=== PATIENT | male | born 1960 | race Caucasian/White ===

== ENCOUNTER 2017-05-24 08:44 | Emergency (ER) | payer MEDICARE ==
[~2017-05-24] VITALS: Ht 180.3 cm; Wt 98.4 kg
[~2017-05-24 08:44] MED LIST: ALBU90OI6 INH; ALBU90OI61 INH; AMOCLA500 PO; AMOCLA875 PO; ASPI81EC PO; AZIT250 PO; Aldactone25 MG; DIAZ10 PO; FLUT110OIA IH; GUAPHELA PO; GUAPSEER PO; HYDACE10B PO; KETO10 PO; METF500 PO; METH10; METH10 PO; METH40; Monodox100 MG PO; OXYC15ER PO; OXYC5; OXYM.05NI; POTCHL20ER; POTCHL20ER PO; PRED10 PO; PRED20 PO; PROM25 PO; Prednisone20 MG PO; Roxicodone15 MG PO; SPIR25 PO; TRAZ50 PO; Zithromax250 MG PO
[2017-05-24] MEDS ORDERED: Flomax0.4 MG PO (09:41)
[2017-05-24 10:52] LABS: Prostate Specific Antigen 0.691 ng/mL (0.000-4.000)
[2017-05-24] MEDS ORDERED: LIDO700A20 TOP (11:02)
[2017-08-22] MEDS ORDERED: METH40 PO (12:16)
[2017-08-22] MEDS ORDERED: RANI150 PO (12:16)
[2017-08-22] MEDS ORDERED: K-Dur20 MEQ (12:16)
== END 2017-05-24 11:11 | disposition home or self-care (01) ==
LOC: ER 08:44
PROVIDERS: Emergency Medicine
DX: N40.1 Benign prostatic hyperplasia with lower urinary tract symptoms (principal); R39.11 Hesitancy of micturition; F11.20 Opioid dependence, uncomplicated; E11.42 Type 2 diabetes mellitus with diabetic polyneuropathy; R19.7 Diarrhea, unspecified; G89.29 Other chronic pain; Z87.891 Personal history of nicotine dependence; Z79.899 Other long term (current) drug therapy
CPT/HCPCS: 36415; 99283; G0103

== ENCOUNTER 2017-07-30 08:21 | Day surgery (SDC) | payer MEDICARE ==
[~2017-07-30] VITALS: Ht 180.3 cm; Wt 89.1 kg
[~2017-07-30 08:21] MED LIST changes: +Flomax0.4 MG PO; +LIDO700A20 TOP
[2017-07-30] MEDS ORDERED: METH10 (08:56)
[2017-08-22] MEDS ORDERED: K-Dur20 MEQ (12:16)
[2017-08-22] MEDS ORDERED: RANI150 PO (12:16)
[2017-08-22] MEDS ORDERED: METH40 PO (12:16)
== END 2017-07-30 11:07 | disposition home or self-care (01) ==
LOC: ORSCSDS 08:21
PROVIDERS: Internal Medicine Gastroenterology
PROC: 0DBN8ZX Excision of Sigmoid Colon, Via Natural or Artificial Opening Endoscopic, Diagnostic (ICD-10-PCS; principal; 2017-07-30 10:00)
PROC: 0DBB8ZX Excision of Ileum, Via Natural or Artificial Opening Endoscopic, Diagnostic (ICD-10-PCS; principal; 2017-07-30 10:00)
PROC: 0DBK8ZX Excision of Ascending Colon, Via Natural or Artificial Opening Endoscopic, Diagnostic (ICD-10-PCS; principal; 2017-07-30 10:00)
DX: R19.7 Diarrhea, unspecified (principal); R63.4 Abnormal weight loss; D12.3 Benign neoplasm of transverse colon; D12.2 Benign neoplasm of ascending colon; K63.5 Polyp of colon; Z86.010 Personal history of colon polyps; E78.5 Hyperlipidemia, unspecified; G62.9 Polyneuropathy, unspecified; J44.9 Chronic obstructive pulmonary disease, unspecified; Z79.899 Other long term (current) drug therapy; Z79.891 Long term (current) use of opiate analgesic; Z87.891 Personal history of nicotine dependence
CPT/HCPCS: 88305; J2405

== ENCOUNTER 2017-08-26 13:22 | Day surgery (SDC) | payer MEDICARE ==
[2017-08-24 09:06] LABS: Anion Gap 8 mmol/L (6-16); Blood Urea Nitrogen 20 mg/dL (8-24); Bun/Creatinine Ratio 21.2 (12.0-20.0); CO2, Blood 30 mmol/L (21-32); Chloride, Blood 97 mmol/L (98-108); Creatinine, Blood 0.94 mg/dL (0.60-1.20); Glomerular Filtration Rate >60 (60-); Glucose, Blood 139 mg/dL (70-99); Sodium, Blood 135 mmol/L (136-145)
[2017-08-24 09:09] LABS: BASOPHILS ABSOLUTE AUTO 0.08 K/mm3 (0.00-0.23); BASOPHILS PERCENT AUTO 1 % (0-2); EOSINOPHILS ABSOLUTE AUTO 0.14 K/mm3 (0.00-0.68); EOSINOPHILS PERCENT AUTO 1 % (0-6); Hematocrit 45.4 % (37.0-53.0); Hemoglobin 15.4 g/dL (13.5-17.5); IMMATURE GRAN ABSOLUTE AUTO 0.02 K/mm3 (0.00-0.10); IMMATURE GRAN PERCENT AUTO 0 % (0-1); LYMPHOCYTES ABSOLUTE AUTO 2.27 K/mm3 (0.84-5.20); LYMPHOCYTES PERCENT AUTO 21 % (21-46); MONOCYTES ABSOLUTE AUTO 0.62 K/mm3 (0.16-1.47); MONOCYTES PERCENT AUTO 6 % (4-13); Mean Corpuscular HGB 30.3 pg (26.0-34.0); Mean Corpuscular HGB Conc 33.9 g/dL (31.5-36.5); Mean Corpuscular Volume 89 fL (80-100); Mean Platelet Volume 10.6 fL (9.1-12.4); NEUTROPHILS ABSOLUTE AUTO 7.54 K/mm3 (1.96-9.15); NEUTROPHILS PERCENT AUTO 71 % (41-73); Platelet Count 268 K/mm3 (150-400); RDW Coefficient Variation 12.8 % (11.7-14.2); RDW Standard Deviation 42.2 fL (35.1-46.3); Red Blood Cell Count 5.08 M/mm3 (4.30-5.90); White Blood Cell Count 10.67 K/mm3 (4.00-11.30)
[~2017-08-26] VITALS: Ht 180.3 cm; Wt 88.2 kg
[~2017-08-26 13:22] MED LIST changes: +K-Dur20 MEQ; +METH40 PO; +RANI150 PO
== END 2017-08-26 17:15 | disposition home or self-care (01) ==
LOC: ORSCSDS 13:22
PROVIDERS: Podiatrist Foot & Ankle Surgery
PROC: 01NG0ZZ Release Tibial Nerve, Open Approach (ICD-10-PCS; principal; 2017-08-26 14:45)
DX: G57.51 Tarsal tunnel syndrome, right lower limb (principal); F41.9 Anxiety disorder, unspecified; Z79.891 Long term (current) use of opiate analgesic; Z79.899 Other long term (current) drug therapy; Z87.891 Personal history of nicotine dependence
CPT/HCPCS: 36415; 80048; 85025; J0171; J0690; J1100; J2250; J2405; J3010

== ENCOUNTER 2017-10-07 13:36 | Day surgery (SDC) | payer MEDICARE ==
[~2017-10-07] VITALS: Ht 180.3 cm; Wt 87.3 kg
== END 2017-10-07 17:53 | disposition home or self-care (01) ==
LOC: ORSCSDS 13:36
PROVIDERS: Podiatrist Foot & Ankle Surgery
PROC: 01NG0ZZ Release Tibial Nerve, Open Approach (ICD-10-PCS; principal; 2017-10-07 14:30)
DX: G57.51 Tarsal tunnel syndrome, right lower limb (principal); F41.9 Anxiety disorder, unspecified; Z87.891 Personal history of nicotine dependence; Z79.891 Long term (current) use of opiate analgesic; Z79.899 Other long term (current) drug therapy
CPT/HCPCS: J0171; J0690; J1100; J1885; J2250; J2405; J3010; J7120

== ENCOUNTER 2018-05-11 08:38 | Emergency (ER) | payer MEDICARE ==
[~2018-05-11] VITALS: Ht 177.8 cm; Wt 90.7 kg
[2018-05-11] MEDS ORDERED: OXYC10TA19 (09:29)
[2018-05-11] MEDS ORDERED: METH10 PO (09:29)
[2018-05-11] MEDS ORDERED: ALBU90OI INH (09:39)
[2018-05-11] MEDS ORDERED: TYLECOD3 PO (09:39)
[2018-05-11] MEDS ORDERED: ONDA4ODT MM (09:39)
== END 2018-05-11 09:48 | disposition home or self-care (01) ==
LOC: ER 08:38
DX: J11.1 Influenza due to unidentified influenza virus with other respiratory manifestations (principal); E11.40 Type 2 diabetes mellitus with diabetic neuropathy, unspecified; Z87.891 Personal history of nicotine dependence
CPT/HCPCS: 99283

== ENCOUNTER → 2019-01-06 | Outpatient (CLI) | payer MEDICARE ==
[~2019-01-06] MED LIST changes: +ALBU90OI INH; +ONDA4ODT MM; +OXYC10TA19; +TYLECOD3 PO
== END | disposition home or self-care (01) ==
LOC: LAB SHORT 14:46 → LAB 14:46
DX: R71.8 Other abnormality of red blood cells (principal)
CPT/HCPCS: 82668

== ENCOUNTER → 2019-01-22 | Outpatient (CLI) | payer MEDICARE ==
[2019-01-22 13:01] LABS: Alanine Aminotransfer (ALT/SGP 21 U/L (12-78); Albumin, Blood 3.8 g/dL (3.4-5.0); Albumin/Globulin Ratio 0.9 (0.8-1.8); Alk Phos 79 U/L (50-136); Amylase, Blood 301 U/L (25-115); Anion Gap 7 mmol/L (6-16); Aspartate Aminotrans (AST/SGOT 21 U/L (12-37); Bilirubin, Total 0.6 mg/dL (0.1-1.0); Blood Urea Nitrogen 26 mg/dL (8-24); Bun/Creatinine Ratio 28.1 (12.0-20.0); CO2, Blood 30 mmol/L (21-32); Calcium, Blood 9.7 mg/dL (8.5-10.1); Chloride, Blood 102 mmol/L (98-108); Creatinine, Blood 0.93 mg/dL (0.60-1.20); Globulin, Blood 4.1 g/dL (2.2-4.0); Glomerular Filtration Rate >60 (60-); Glucose, Blood 117 mg/dL (70-99); Potassium, Blood 3.4 mmol/L (3.5-5.5); Sodium, Blood 139 mmol/L (136-145); Total Protein, Blood 7.9 g/dL (6.4-8.2)
== END | disposition home or self-care (01) ==
LOC: LAB SHORT 10:26 → LAB 10:26
PROVIDERS: Internal Medicine Hematology & Oncology
DX: D75.1 Secondary polycythemia (principal); R71.8 Other abnormality of red blood cells; D72.829 Elevated white blood cell count, unspecified; E11.9 Type 2 diabetes mellitus without complications
CPT/HCPCS: 80053; 82150; 83036

== ENCOUNTER 2019-07-07 10:38 | Emergency (ER) | payer MEDICARE ==
[~2019-07-07] VITALS: Ht 180.3 cm; Wt 121.6 kg
[2019-07-07] MEDS ORDERED: Potassium Chlo20 ME1 PO (11:16)
[2019-07-07] MEDS ORDERED: OLMESARTAN MEDOX5 MG PO (11:17)
[2019-07-07] MEDS ORDERED: METFORMIN HCL500 M2 PO (11:17)
[2019-07-07] MEDS ORDERED: Depo-Testos200 MG/ML IM (11:18)
[2019-07-07] MEDS ORDERED: TAMSULOSIN HCL0.4 M1 PO (11:18)
[2019-07-07] MEDS ORDERED: Percocet 5-3251 EACH PO (12:47)
[2019-07-07] MEDS ORDERED: IBU800 MG PO (12:47)
== END 2019-07-07 12:58 | disposition home or self-care (01) ==
LOC: ER 10:38
DX: M54.32 Sciatica, left side (principal); Z79.899 Other long term (current) drug therapy; Z79.84 Long term (current) use of oral hypoglycemic drugs; E11.40 Type 2 diabetes mellitus with diabetic neuropathy, unspecified; Z87.891 Personal history of nicotine dependence
CPT/HCPCS: 96372; 99283-25; J1885

== ENCOUNTER 2019-07-16 11:08 | Emergency (ER) | payer MEDICARE ==
[~2019-07-16] VITALS: Ht 180.3 cm; Wt 95.7 kg
[~2019-07-16 11:08] MED LIST changes: +Depo-Testos200 MG/ML IM; +IBU800 MG PO; +METFORMIN HCL500 M2 PO; +OLMESARTAN MEDOX5 MG PO; +Percocet 5-3251 EACH PO; +Potassium Chlo20 ME1 PO; +TAMSULOSIN HCL0.4 M1 PO
[2019-07-16] MEDS ORDERED: PRED20 PO (13:47)
[2019-07-16] MEDS ORDERED: Hydrocodone-Ap1 EA23 PO (13:47)
[2019-07-16] MEDS ORDERED: Robaxin-750750 MG PO (13:47)
== END 2019-07-16 13:57 | disposition home or self-care (01) ==
LOC: ER 11:08
DX: M54.32 Sciatica, left side (principal); E11.40 Type 2 diabetes mellitus with diabetic neuropathy, unspecified; Z79.899 Other long term (current) drug therapy; Z79.84 Long term (current) use of oral hypoglycemic drugs; Z87.891 Personal history of nicotine dependence
CPT/HCPCS: 96372; 99283-25; A9270-GY; J1170

== ENCOUNTER 2020-06-22 10:11 | Emergency (ER) | payer MEDICARE ==
[~2020-06-22] VITALS: Ht 180.3 cm; Wt 90.7 kg
[~2020-06-22 10:11] MED LIST changes: +Hydrocodone-Ap1 EA23 PO; +Robaxin-750750 MG PO
[2020-06-22] MEDS ORDERED: HYDR1TAB94 PO (11:33)
== END 2020-06-22 12:06 | disposition home or self-care (01) ==
LOC: ER 10:11
DX: M70.31 Other bursitis of elbow, right elbow (principal); E11.40 Type 2 diabetes mellitus with diabetic neuropathy, unspecified; Z79.899 Other long term (current) drug therapy; Z79.52 Long term (current) use of systemic steroids
CPT/HCPCS: 73080; 99283-25

== ENCOUNTER 2020-11-21 13:31 | Emergency (ER) | payer MEDICARE ==
[~2020-11-21] VITALS: Ht 180.3 cm; Wt 92.5 kg
[~2020-11-21 13:31] MED LIST changes: +HYDR1TAB94 PO
[2020-11-21] MEDS ORDERED: SULTRIDS PO (14:16)
[2020-11-21] MEDS ORDERED: CEPH500 PO (14:16)
== END 2020-11-21 14:18 | disposition home or self-care (01) ==
LOC: ER 13:31
DX: L02.412 Cutaneous abscess of left axilla (principal); E11.40 Type 2 diabetes mellitus with diabetic neuropathy, unspecified; Z79.899 Other long term (current) drug therapy; Z87.891 Personal history of nicotine dependence
CPT/HCPCS: 99283

== ENCOUNTER → 2021-08-22 | Outpatient (CLI) | payer MEDICARE ==
[~2021-08-22] MED LIST changes: +ATEN25 PO; +CEPH500 PO; +METH5 PO; +POTA20PAC; +SULTRIDS PO; +SULTRISS PO
[2021-08-22 09:26] LABS: BASOPHILS ABSOLUTE AUTO 0.12 K/mm3 (0.00-0.23); BASOPHILS PERCENT AUTO 1 % (0-2); EOSINOPHILS ABSOLUTE AUTO 0.27 K/mm3 (0.00-0.68); EOSINOPHILS PERCENT AUTO 2 % (0-6); Hematocrit 48.3 % (37.0-53.0); Hemoglobin 16.2 g/dL (13.5-17.5); IMMATURE GRAN ABSOLUTE AUTO 0.04 K/mm3 (0.00-0.10); IMMATURE GRAN PERCENT AUTO 0 % (0-1); LYMPHOCYTES ABSOLUTE AUTO 1.67 K/mm3 (0.84-5.20); LYMPHOCYTES PERCENT AUTO 13 % (21-46); MONOCYTES ABSOLUTE AUTO 1.22 K/mm3 (0.16-1.47); MONOCYTES PERCENT AUTO 9 % (4-13); Mean Corpuscular HGB 30.3 pg (26.0-34.0); Mean Corpuscular HGB Conc 33.5 g/dL (31.5-36.5); Mean Corpuscular Volume 90 fL (80-100); Mean Platelet Volume 10.2 fL (9.1-12.4); NEUTROPHILS ABSOLUTE AUTO 10.03 K/mm3 (1.96-9.15); NEUTROPHILS PERCENT AUTO 75 % (41-73); Platelet Count 213 K/mm3 (150-400); RDW Coefficient Variation 14.5 % (11.7-14.2); RDW Standard Deviation 47.6 fL (35.1-46.3); Red Blood Cell Count 5.35 M/mm3 (4.30-5.90); White Blood Cell Count 13.35 K/mm3 (4.00-11.30)
[2021-08-22 09:36] LABS: Bun/Creatinine Ratio 20.6 (12.0-20.0); Calcium, Blood 8.9 mg/dL (8.5-10.1); Creatinine, Blood 1.36 mg/dL (0.60-1.20); Potassium, Blood 3.3 mmol/L (3.5-5.5); Uric Acid, Blood 7.7 mg/dL (3.5-7.2)
== END | disposition home or self-care (01) ==
LOC: LAB SHORT 09:23
PROVIDERS: Chiropractor
DX: M25.429 Effusion, unspecified elbow (principal)
CPT/HCPCS: 80048; 84550; 85025

== ENCOUNTER 2022-04-11 09:50 | Day surgery (SDC) | payer MEDICARE ==
[~2022-04-11] VITALS: Ht 180.3 cm; Wt 92.1 kg
[2022-04-11] MEDS ORDERED: DEPO-TESTO200 MG/1 M (11:32)
[2022-04-11] MEDS ORDERED: BACTRIM 400-801 EACH (11:33)
[2022-04-11] MEDS ORDERED: CEPHALEXIN500 M1 (11:34)
--- NOTE | 2022-04-11 13:23 | NUR ---
04/11/22 1323 [place] ANTONIO 0.15MG OF EPI ADDED TO 30MLS OF ROPIVACAINE 0.5% TO CREATE A LOCAL SOLUTION OF ROPIVACAINE 0.5% WITH EPI 1:200,000. 20MLS OF LOCAL POURED ONTO STERILE FIELD FOR USE DURING CASE.
--- NOTE | 2022-04-11 14:28 | NUR ---
04/11/22 1428 Maren Maxwell'Christine FENTANYL 25 MCG GIVEN FOR PAIN 01/03. CURRENTLY STATES PAIN 07/06
--- NOTE | 2022-04-12 07:59 | NUR ---
04/12/22 0759 Nidhi Maxwell LATE ENTRY; PT WAS GIVEN 25 MCG OF FENTANYL AND WASTE OF 75 MCG OF FENTANYL WAS DONE
== END 2022-04-11 15:08 | disposition home or self-care (01) ==
LOC: ORSCSDS 09:50
PROVIDERS: Podiatrist Foot & Ankle Surgery
PROC: 0Y6X0Z0 Detachment at Right 5th Toe, Complete, Open Approach (ICD-10-PCS; principal; 2022-04-11 11:15)
DX: G90.09 Other idiopathic peripheral autonomic neuropathy (principal); L98.492 Non-pressure chronic ulcer of skin of other sites with fat layer exposed; M86.171 Other acute osteomyelitis, right ankle and foot; L03.119 Cellulitis of unspecified part of limb; I10 Essential (primary) hypertension; Z87.891 Personal history of nicotine dependence; J45.909 Unspecified asthma, uncomplicated; E11.40 Type 2 diabetes mellitus with diabetic neuropathy, unspecified; F41.8 Other specified anxiety disorders; Z79.899 Other long term (current) drug therapy
CPT/HCPCS: 82947; 88305; 88311; J0171; J0690; J1100; J2250; J2370; J2405; J2704; J2795; J3010

== ENCOUNTER 2024-06-26 14:34 | Emergency (ER) | payer MEDICARE ==
[~2024-06-26] VITALS: Ht 182.9 cm; Wt 90.7 kg
[~2024-06-26 14:34] MED LIST changes: +BACTRIM 400-801 EACH; +CEPHALEXIN500 M1; +DEPO-TESTO200 MG/1 M
[2024-06-26] MEDS ORDERED: Ondansetron HCl 2 MG / ML 2ML Vial IV ONE (15:15)
[2024-06-26] MEDS ORDERED: HYDROmorphone HCl/Pf 1MG SYR IV ONE (15:15)
[2024-06-26] MEDS ORDERED: Lactated Ringer's 1,000 ML IV ONE (15:15)
[2024-06-26 15:19] LABS: BASOPHILS ABSOLUTE AUTO 0.12 K/mm3 (0.00-0.23); BASOPHILS PERCENT AUTO 1 % (0-2); EOSINOPHILS ABSOLUTE AUTO 0.15 K/mm3 (0.00-0.68); EOSINOPHILS PERCENT AUTO 1 % (0-6); Hematocrit 52.4 % (37.0-53.0); Hemoglobin 17.9 g/dL (13.5-17.5); IMMATURE GRAN ABSOLUTE AUTO 0.03 K/mm3 (0.00-0.10); IMMATURE GRAN PERCENT AUTO 0 % (0-1); LYMPHOCYTES ABSOLUTE AUTO 2.56 K/mm3 (0.84-5.20); LYMPHOCYTES PERCENT AUTO 17 % (21-46); MONOCYTES ABSOLUTE AUTO 0.88 K/mm3 (0.16-1.47); MONOCYTES PERCENT AUTO 6 % (4-13); Mean Corpuscular HGB 30.6 pg (26.0-34.0); Mean Corpuscular HGB Conc 34.2 g/dL (31.5-36.5); Mean Corpuscular Volume 90 fL (80-100); Mean Platelet Volume 10.5 fL (9.1-12.4); NEUTROPHILS ABSOLUTE AUTO 10.96 K/mm3 (1.96-9.15); NEUTROPHILS PERCENT AUTO 75 % (41-73); Platelet Count 243 K/mm3 (150-400); RDW Coefficient Variation 13.6 % (11.7-14.2); RDW Standard Deviation 44.8 fL (35.1-46.3); Red Blood Cell Count 5.85 M/mm3 (4.30-5.90)
[2024-06-26 15:36] LABS: Albumin, Blood 3.7 g/dL (3.4-5.0); Albumin/Globulin Ratio 0.8 (0.8-1.8); Bilirubin, Total 0.8 mg/dL (0.1-1.0); Bun/Creatinine Ratio 23.3 (12.0-20.0); Calcium, Blood 9.8 mg/dL (8.5-10.1); Creatinine, Blood 1.29 mg/dL (0.60-1.20); Globulin, Blood 4.6 g/dL (2.2-4.0); Potassium, Blood 3.9 mmol/L (3.5-5.5); Total Protein, Blood 8.3 g/dL (6.4-8.2)
[2024-06-26 16:15] LABS: Source, Urine Clean Catch
[2024-06-26 16:27] LABS: Appearance, Urine Clear (Clear); Bilirubin, Urine Neg (Neg); Blood, Urine Neg (Neg); Color, Urine Yellow (P-Yellow); Glucose Qualitative, Urine Neg (Neg); Ketones, Urine Neg (Neg); Leukocyte Esterase, Urine Neg (Neg); Nitrite, Urine Neg (Neg); Protein, Urine 3+ (Neg); Specific Gravity, Urine 1.005 (1.003-1.022); Urobilinogen, Urine NORM (Normal)
[2024-06-26 16:43] LABS: Bacteria Few /hpf; Red Blood Cells, Urine 0-2 /hpf (0-2); Squamous Epithelial Cells Rare /hpf (Few); White Blood Cells, Urine 0-2 /hpf (0-5)
[2024-06-26 17:00] VITALS: BP 120/79
[2024-06-26] MEDS ORDERED: ONDA4ODT MM (17:52)
== END 2024-06-26 17:59 | disposition home or self-care (01) ==
LOC: ER 14:34
PROVIDERS: Emergency Medicine; Student in an Organized Health Care Education/Training Program
DX: K52.9 Noninfective gastroenteritis and colitis, unspecified (principal); E11.40 Type 2 diabetes mellitus with diabetic neuropathy, unspecified; Z87.891 Personal history of nicotine dependence; Z79.899 Other long term (current) drug therapy
CPT/HCPCS: 71045; 74177; 80053; 81001; 83690; 84484; 85025; 93005; 93010; 96361; 96374-59; 96375; 99284-25; J1171; J2405; J7120; Q9967

== ENCOUNTER → 2024-07-21 | Outpatient (CLI) | payer MEDICARE | LOC: LAB 12:00 → LAB SHORT 12:00 | DX: M86.472 Chronic osteomyelitis with draining sinus, left ankle and foot (principal) | CPT/HCPCS: 87070; 87075; 87077; 87186; 87205 ==

== ENCOUNTER → 2024-07-27 | Outpatient (CLI) | payer MEDICARE | LOC: PLD 15:41 → LAB SHORT 15:41 | DX: L03.032 Cellulitis of left toe (principal); M86.472 Chronic osteomyelitis with draining sinus, left ankle and foot; L08.9 Local infection of the skin and subcutaneous tissue, unspecified; L97.524 Non-pressure chronic ulcer of other part of left foot with necrosis of bone | CPT/HCPCS: 87070; 87077; 87186; 87205; 88305; 88311 ==

== ENCOUNTER 2025-02-28 14:52 | Observation (INO) | payer MEDICARE ==
[2025-02-28] VITALS (16 sets, daily range): BP systolic 109–178; BP diastolic 73–151
[~2025-02-28] VITALS: Ht 180.3 cm; Wt 84.1 kg
[~2025-02-28 14:52] MED LIST changes: -POTA20PAC; +POTA20PAC PO
[2025-02-28] MEDS ORDERED: Ondansetron HCl 2 MG / ML 2ML Vial IV ONE (15:00)
[2025-02-28 15:20] LABS: BASOPHILS ABSOLUTE AUTO 0.08 K/mm3 (0.00-0.23); BASOPHILS PERCENT AUTO 1 % (0-2); EOSINOPHILS ABSOLUTE AUTO 0.09 K/mm3 (0.00-0.68); EOSINOPHILS PERCENT AUTO 1 % (0-6); Hematocrit 51.8 % (37.0-53.0); Hemoglobin 17.7 g/dL (13.5-17.5); IMMATURE GRAN ABSOLUTE AUTO 0.05 K/mm3 (0.00-0.10); IMMATURE GRAN PERCENT AUTO 0 % (0-1); LYMPHOCYTES ABSOLUTE AUTO 2.01 K/mm3 (0.84-5.20); LYMPHOCYTES PERCENT AUTO 17 % (21-46); MONOCYTES ABSOLUTE AUTO 0.61 K/mm3 (0.16-1.47); MONOCYTES PERCENT AUTO 5 % (4-13); Mean Corpuscular HGB Conc 34.2 g/dL (31.5-36.5); Mean Corpuscular Volume 90 fL (80-100); NEUTROPHILS ABSOLUTE AUTO 9.17 K/mm3 (1.96-9.15); NEUTROPHILS PERCENT AUTO 76 % (41-73); NRBC ABSOLUTE 0.00 K/mm3 (0.00-0.02); NRBC Auto 0.0 /100 WBC (0.0-0.2); Platelet Count 170 K/mm3 (150-400); RDW Coefficient Variation 14.1 % (11.7-14.2); RDW Standard Deviation 46.6 fL (35.1-46.3)
[2025-02-28 15:37] LABS: Alanine Aminotransfer (ALT/SGP 28.0 U/L (12-78); Albumin, Blood 3.6 g/dL (3.4-5.0); Albumin/Globulin Ratio 0.8 (0.8-1.8); Anion Gap 8.0 mmol/L (3-11); Aspartate Aminotrans (AST/SGOT 21.0 U/L (12-37); Bilirubin, Total 1.1 mg/dL (0.1-1.0); Blood Urea Nitrogen 29.0 mg/dL (8-24); CO2, Blood 31.0 mmol/L (21-32); Calcium, Blood 9.3 mg/dL (8.5-10.1); Chloride, Blood 99.0 mmol/L (98-108); Creatinine, Blood 1.29 mg/dL (0.60-1.20); Globulin, Blood 4.4 g/dL (2.2-4.0); Glucose, Blood 154.0 mg/dL (70-99); Potassium, Blood 3.6 mmol/L (3.5-5.5); Sodium, Blood 134.0 mmol/L (136-145); Total Protein, Blood 8.0 g/dL (6.4-8.2)
[2025-02-28 16:16] LABS: Influenza A, PCR NEGATIVE (NEGATIVE); Influenza B, PCR NEGATIVE (NEGATIVE); Resp Syncytial Virus, PCR NEGATIVE (NEGATIVE); SARS-Cov-2 (COVID-19) PCR, MMC NEGATIVE (NEGATIVE)
[2025-02-28] MEDS ORDERED: SPIRONOLACTONE25 MG PO (18:20)
[2025-02-28] MEDS ORDERED: ALLOPURINOL100 M1 PO (18:20)
[2025-02-28] MEDS ORDERED: METFORMIN HCL500 M2 PO (18:21)
[2025-02-28] MEDS ORDERED: NS 1,000 ML IV SCH (19:10)
[2025-02-28] MEDS ORDERED: Ondansetron HCl 2 MG / ML 2ML Vial IV PRN (19:15)
[2025-02-28] MEDS ORDERED: FLU VACC TS2025(65UP)/MF59C/PF 45 MCG/0.5 ML SYRINGE IM SCH (19:20)
[2025-02-28] MEDS ORDERED: NS 250 ML IV ONE (19:44)
[2025-02-28] MEDS ORDERED: Heparin Sodium 1000 Units/ML 10ML MDV ONE (19:44)
[2025-02-28] MEDS ORDERED: NS 500 ML IV ONE (19:48)
[2025-02-28 20:13] LABS: C-REACTIVE PROTEIN, EXT RANGE 0.935 mg/dL (0.000-0.300); Magnesium, Blood 1.7 mg/dL (1.6-2.4)
[2025-02-28] MEDS ORDERED: FentaNYL Citrate 50 MCG/ML 2 ML Injection ONE (20:13)
[2025-02-28] MEDS ORDERED: Midazolam HCl 1MG / ML 2ML Vial ONE (20:13)
[2025-02-28 20:22] LABS: Thyroid Stimulating Hormone 2.77 uIU/mL (0.360-4.800)
[2025-02-28] MEDS ORDERED: Ondansetron HCl 2 MG / ML 2ML Vial ONE (20:24)
[2025-02-28 22:05] LABS: U Amphetamine Screen Not Detected; U Barbituate Screen Not Detected; U Benzodiazapine Screen Not Detected; U Buprenorphine Screen Not Detected; U Cannabinoids Screen DETECTED; U Cocaine Screen Not Detected; U Methadone Screen DETECTED; U Methamphetamine Screen Not Detected; U Opiates Screen Not Detected; U Oxycodone Screen Not Detected; U Phencyclidine Screen Not Detected
[2025-03-01] VITALS (62 sets, daily range): BP systolic 95–169; BP diastolic 52–148
--- NOTE | 2025-03-01 00:49 | NUR ---
2254 PATIENT CONVERTED INTO AFIBB RHYTHM ON THE PROPERTY DAMAGE CLAIMS ADJUSTOR RATE 70S-80S. PATIENT STATES THIS HAS HAPPENED IN THE PAST BEFORE. DR. TAPIA MADE AWARE AND EKG AQUIRED CONFIRMING A FIB WITH FREQUENT VENTRICULAR PACED COMPLEXES. PATIENT IS POST OP TEMP. PACEMAKER -SEE FLOWSHEETS FOR SETTINGS-. NO S/S OF DISTRESS OR DISCOMFORT. REPORTS NO CP AT THIS TIME. OTHERWISE VS STABLE.
[2025-03-01 03:29] LABS: Hematocrit 52.6 % (37.0-53.0); Hemoglobin 17.5 g/dL (13.5-17.5); Mean Corpuscular HGB Conc 33.3 g/dL (31.5-36.5); Mean Corpuscular Volume 90 fL (80-100); NRBC ABSOLUTE 0.00 K/mm3 (0.00-0.02); NRBC Auto 0.0 /100 WBC (0.0-0.2); Platelet Count 167 K/mm3 (150-400); RDW Coefficient Variation 13.9 % (11.7-14.2); RDW Standard Deviation 46.0 fL (35.1-46.3)
[2025-03-01 04:07] LABS: Anion Gap 6.0 mmol/L (3-11); Blood Urea Nitrogen 24.0 mg/dL (8-24); CO2, Blood 28.0 mmol/L (21-32); Calcium, Blood 8.8 mg/dL (8.5-10.1); Chloride, Blood 104.0 mmol/L (98-108); Creatinine, Blood 1.03 mg/dL (0.60-1.20); Glucose, Blood 126.0 mg/dL (70-99); Potassium, Blood 3.4 mmol/L (3.5-5.5); Sodium, Blood 135.0 mmol/L (136-145)
[2025-03-01] MEDS ORDERED: Mag Sulfate 1 GM/D5% 100ML 100 ML IV ONE (08:25)
--- NOTE | 2025-03-01 10:46 | NUR ---
AM NOTE: THIS RN ASSUMED CARE OF PT AT APPROX 0700. PT A/OX4, ABLE TO MAKE NEEDS KNOWN & PARTICIPATE IN CARE. TRANSVENOUS PACER TO RIJ; RATE 70, OUTPUT 3K, SENSING 2.5, 35 @ SHEATH. HR 70-90'S, AFIB ON MONITOR W/ PVC'S. SBP 100-150'S, MAP >65. PT DENIES CHEST PAIN/PRSSURE BUT ENDORSES NAUSEA/DIZZINESS. MEDICATED FOR NAUSEA PER EMAR. SPO2 >90% ON RA, RESPIRATIONS EVEN & UNLABORED. AFEBRILE. VOIDING INDEPENDENTLY IN URINAL. BEDREST AT THIS TIME. PIV TO RAC, RFA, SHELLI. NS INFUSING AT 125 ML/HR. IV K & MG REPLACEMENT COMPLETE. PLANS FOR PERMANENT PACER PLACEMENT AT APPROX 1200. NO OTHER NEEDS AT THIS TIME, CALL LIGHT IN REACH.
[2025-03-01] MEDS ORDERED: CeFAZolin Sodium 2,000 MG in NS 100 ML IV SCH (11:00)
[2025-03-01] MEDS ORDERED: NS 100 ML IV ONE (11:17)
[2025-03-01] MEDS ORDERED: CeFAZolin Sodium 2,000 MG VIAL ONE (11:17)
[2025-03-01] MEDS ORDERED: NS 1,000 ML IV ONE ×2 (11:17→11:26)
[2025-03-01] MEDS ORDERED: Heparin Sodium 1000 Units/ML 10ML MDV ONE (11:25)
[2025-03-01] MEDS ORDERED: CeFAZolin Sodium 1000 mg Vial ONE (11:25)
--- NOTE | 2025-03-01 11:42 | NUR ---
NUTRITION AIDE: PT TO NUTRITION AIDE AT THIS TIME FOR PERMANENT PACER PLACEMENT.
[2025-03-01] MEDS ORDERED: Ondansetron HCl 2 MG / ML 2ML Vial ONE (12:01)
[2025-03-01] MEDS ORDERED: FentaNYL Citrate 50 MCG/ML 2 ML Injection ONE ×2 (12:05→12:28)
[2025-03-01] MEDS ORDERED: Midazolam HCl 1MG / ML 2ML Vial ONE ×2 (12:05→12:28)
[2025-03-01] MEDS ORDERED: Insulin Human Lispro 100 Units/ML 3ML Syringe SC SCH ×2 (16:30)
--- NOTE | 2025-03-01 18:51 | NUR ---
DISCHARGE NOTE: PT DISCHARGED FROM ICU-11 AT 1848. ALL DISCHARGE INSTRUCTIONS AND POST-PACER EDUCATION REVIEWED BY THIS RN. DR. LOCKE TO BEDSIDE THIS EVENING, PACER SITE NOTED TO BE OOZING BUT STABLE. PT TO CALL CARDIOLOGY OFFICE IF DRESSING BECOMES SATURATED. PER DR. LOCKE, PT TO CALL CARDIOLOGY OFFICE TOMORROW TO ATTEMPT TO MOVE POST-OP APPOINTMENT TO THIS MONDAY 03/05. VSS ON DISCHARGE. AFIB ON MONITOR, RATE 60-90'S. BP STABLE, MAP >65. SPO2 >90% ON RA. AFEBRILE. PT'S SON TO DRIVE PT HOME. PIV X3 REMOVED W/O DIFFICULTY. PT WALKED TO PRIVATE VEHICLE BY STAFF.
== END 2025-03-01 18:48 | disposition home or self-care (01) ==
LOC: ER 14:52 → ICUE 18:38
PROVIDERS: Emergency Medicine; Nurse Practitioner Acute Care; Physician Assistant; ADMIT Student in an Organized Health Care Education/Training Program
DX: I45.5 Other specified heart block (principal); I46.9 Cardiac arrest, cause unspecified; I47.19 Other supraventricular tachycardia; I44.0 Atrioventricular block, first degree; Q21.12 Patent foramen ovale; I48.91 Unspecified atrial fibrillation; R53.1 Weakness; D72.829 Elevated white blood cell count, unspecified; E83.42 Hypomagnesemia; E87.6 Hypokalemia; I12.9 Hypertensive chronic kidney disease with stage 1 through stage 4 chronic kidney disease, or unspecified chronic kidney disease; E11.22 Type 2 diabetes mellitus with diabetic chronic kidney disease; N18.30 Chronic kidney disease, stage 3 unspecified; E78.5 Hyperlipidemia, unspecified; G89.29 Other chronic pain; J44.9 Chronic obstructive pulmonary disease, unspecified; M10.9 Gout, unspecified; F17.290 Nicotine dependence, other tobacco product, uncomplicated; Z79.84 Long term (current) use of oral hypoglycemic drugs; Z79.899 Other long term (current) drug therapy; Z89.431 Acquired absence of right foot
CPT/HCPCS: 33208; 33210; 36415; 70450; 71046; 76937; 80048; 80053; 82947; 83036; 83690; 83735; 84443; 84484; 85025; 85027; 85379; 85651; 86140; 87637; 93306; 99152; 99153; A9270; C1785; C1894; C1898; J0461; J0690; J1644; J2250; J2405; J3010; J3475; J3480; J7030; J7040; J7050; Q9967

== ENCOUNTER 2025-04-26 05:47 | Day surgery (SDC) | payer MEDICARE ==
[2025-04-26] VITALS (10 sets, daily range): BP systolic 94–122; BP diastolic 65–86
[~2025-04-26 05:47] MED LIST changes: +ALLOPURINOL100 M1 PO; +SPIRONOLACTONE25 MG PO
[2025-04-26] MEDS ORDERED: NS 1,000 ML IV ONE (06:51)
--- NOTE | 2025-04-26 07:22 | NUR ---
ASSUMED CARE FROM ANESTHESIA. PT AWAKE AND VERBALIZING WELL. SR 70 BPM POST CARDIOVERSION.
[2025-04-26] MEDS ORDERED: ELIQUIS5 M2 PO (07:53)
[2025-04-26] MEDS ORDERED: TAMS.4ER PO (07:53)
--- NOTE | 2025-04-26 08:20 | NUR ---
PT AND SON VERBALIZED UNDERSTANDING OF WRITTEN AND VERBAL D/C INST. IV REMOVED. SR 70 BPM ON D/C. PT TAKEN OUT OF THE HRT CENTER VIA W/C.
== END 2025-04-26 23:06 | disposition home or self-care (01) ==
LOC: MHTC 05:47 → ORSCMMR 07:00 → ORD 07:00 → MHTC 23:06
DX: I48.19 Other persistent atrial fibrillation (principal); Z95.0 Presence of cardiac pacemaker; I10 Essential (primary) hypertension; E78.5 Hyperlipidemia, unspecified; E11.9 Type 2 diabetes mellitus without complications; Z87.891 Personal history of nicotine dependence; Z88.8 Allergy status to other drugs, medicaments and biological substances
CPT/HCPCS: 92960; J2704; J7030